=== PATIENT | female | born 2000 | race Caucasian/White ===

== ENCOUNTER 2018-05-27 19:44 | Emergency (ER) | payer OTHER ==
[2018-05-27 21:17] LABS: ABS Basophils 0 10^3/ul (0-0.2); ABS Eosinophils 0.1 10^3/ul (0-0.6); ABS Lymphocytes 3.3 10^3/ul (1.0-4.8); ABS Monocytes 0.4 10^3/ul (0-0.8); ABS Neutrophils 3.6 10^3/ul (1.5-7.7); ABS Nucleated RBC 0 10^3/ul; Eosinophil % 0.8 %; Hematocrit 42 % (33-41); Hemoglobin 13.8 g/dL (12.0-16.0); Lymphocyte % 44.5 %; Mean Corpuscular HGB Conc 33 g/dL (31-36); Mean Corpuscular Hemoglobin 27 pg (27-31); Mean Corpuscular Volume 82 fL (80-97); Mean Platelet Volume 7.2 fL (7.4-10.4); Nucleated Red Blood Cells % 0.1; Platelet Count 315 10^3/uL (150-450); Red Blood Count 5.07 10^6 /uL (3.70-4.87); Red Cell Distribution Width 15 % (10.5-15); White Blood Count 7.5 10^3/uL (3.5-10.8)
[2018-05-27 21:34] LABS: ALT 17 U/L (7-52); AST 20 U/L (13-39); Albumin 4.1 g/dL (3.2-5.2); Albumin/Globulin Ratio 1.2 (1-3); Alkaline Phosphatase 34 U/L (34-104); Anion Gap 7 mmol/L (2-11); BUN/Creatinine Ratio 13.9 (8-20); Blood Urea Nitrogen 11 mg/dL (6-24); C Reactive Protein 3.03 mg/L (<8.01); CO2 Carbon Dioxide 25 mmol/L (22-32); Calcium 9.4 mg/dL (8.6-10.3); Chloride 105 mmol/L (101-111); EGFR African American 113.4 (>60); EGFR Non-African American 93.8 (>60); Globulin 3.3 g/dL (2-4); Glucose 82 mg/dL (70-100); Potassium 3.5 mmol/L (3.5-5.0); Sodium 137 mmol/L (135-145); Total Protein 7.4 g/dL (6.4-8.9)
[2018-05-27 21:40] LABS: HCG Pregnancy < 0.60 mIU/mL
[2018-05-27] MEDS ORDERED: Al Hydrox/Mg Hydrox/Simet LIQ* 30 ML UDC PO ONE (22:16)
[2018-05-27] MEDS ORDERED: Lidocaine 2% VISCOUS* 15 ML UDC PO ONE (22:16)
--- NOTE | 2018-05-27 22:18 | ED ---
GI/ HPI - HPI Summary HPI Summary: 17-year-old female presents with left-sided abdominal pain for the past day. She states she has history of IBS feels similar. States she had a bowel movement this morning that was diarrhea. She admits some nausea. No vomiting. States that she pain started after she was exercising. She did have some pain yesterday too. She states that it feels similar to when she had cysts in the past. She has not needed to take her IBS medication many months. Denies any previous abd surgeries. - History of Current Complaint Chief Complaint: EDAbdPain Time Seen by Provider: 05/27/18 22:16 Stated Complaint: ABD PAIN PER PT Pain Intensity: 5 - Allergy/Home Medications Allergies/Adverse Reactions: Allergies Allergy/AdvReac Type Severity Reaction Status Date / Time No Known Allergies Allergy Verified 05/27/18 19:53 PMH/Surg Hx/FS Hx/Imm Hx Endocrine/Hematology History: Denies: Hx Anticoagulant Therapy Respiratory History: Denies: Hx Asthma GI History: Reports: Hx Irritable Bowel Infectious Disease History: No Infectious Disease History: Reports: Traveled Outside the [place] in Last 30 Days - Charline, Giuseppe - Family History Known Family History: Positive: Non-Contributory - Social History Substance Use Type: Reports: None Smoking Status (MU): Never Smoked Tobacco Review of Systems Negative: Fever Negative: Chest Pain Negative: Shortness Of Breath Positive: Abdominal Pain, Diarrhea, Nausea. Negative: Vomiting Negative: dysuria All Other Systems Reviewed And Are Negative: Yes Physical Exam Triage Information Reviewed: Yes Vital Signs On Initial Exam: Initial Vitals Temp Pulse Resp BP Pulse Ox 97.9 F 71 20 143/94 99 05/27/18 19:51 05/27/18 19:51 05/27/18 19:51 05/27/18 19:51 05/27/18 19:51 Vital Signs Reviewed: Yes Appearance: Positive: Well-Appearing Skin: Positive: Warm, Dry Head/Face: Positive: Normal Head/Face Inspection Eyes: Positive: Normal, Conjunctiva Clear ENT: Positive: Pharynx normal Respiratory/Lung Sounds: Positive: Clear to Auscultation, Breath Sounds Present Cardiovascular: Positive: Normal, RRR Abdomen Description: Positive: Soft, Other: - tenderness left side abd Bowel Sounds: Positive: Present Musculoskeletal: Positive: Normal Neurological: Positive: Normal Psychiatric: Positive: Normal Diagnostics - Vital Signs Vital Signs Temp Pulse Resp BP Pulse Ox 05/27/18 19:51 97.9 F 71 20 143/94 99 - Laboratory Lab Results: Lab Results 05/27/18 05/27/18 Range/Units 21:09 21:09 WBC 7.5 (3.5-10.8) 10^3/uL RBC 5.07 H (3.70-4.87) 10^6 /uL Hgb 13.8 (12.0-16.0) g/dL Hct 42 H (33-41) % MCV 82 (80-97) fL MCH 27 (27-31) pg MCHC 33 (31-36) g/dL RDW 15 (10.5-15) % Plt Count 315 (150-450) 10^3/uL MPV 7.2 L (7.4-10.4) fL Neut % (Auto) 48.5 % Lymph % (Auto) 44.5 % Robeson % (Auto) 5.8 % Eos % (Auto) 0.8 % Baso % (Auto) 0.4 % Absolute Neuts (auto) 3.6 (1.5-7.7) 10^3/ul Absolute Lymphs (auto) 3.3 (1.0-4.8) 10^3/ul Absolute Monos (auto) 0.4 (0-0.8) 10^3/ul Absolute Eos (auto) 0.1 (0-0.6) 10^3/ul Absolute Basos (auto) 0 (0-0.2) 10^3/ul Absolute Nucleated RBC 0 10^3/ul Nucleated RBC % 0.1 Sodium 137 (135-145) mmol/L Potassium 3.5 (3.5-5.0) mmol/L Chloride 105 (101-111) mmol/L Carbon Dioxide 25 (22-32) mmol/L Anion Gap 7 (2-11) mmol/L BUN 11 (6-24) mg/dL Creatinine 0.79 (0.51-0.95) mg/dL Est GFR ( Amer) 113.4 (>60) Est GFR (Non-Af Amer) 93.8 (>60) BUN/Creatinine Ratio 13.9 (8-20) Glucose 82 (70-100) mg/dL Calcium 9.4 (8.6-10.3) mg/dL Total Bilirubin 0.80 (0.2-1.0) mg/dL AST 20 (13-39) U/L ALT 17 (7-52) U/L Alkaline Phosphatase 34 (34-104) U/L C-Reactive Protein 3.03 (<8.01) mg/L Total Protein 7.4 (6.4-8.9) g/dL Albumin 4.1 (3.2-5.2) g/dL Globulin 3.3 (2-4) g/dL Albumin/Globulin Ratio 1.2 (1-3) Lipase 26 (11.0-82.0) U/L Beta HCG, Quant < 0.60 mIU/mL Result Diagrams: 05/27/18 21:09 05/27/18 21:09 Lab Statement: Any lab studies that have been ordered have been reviewed, and results considered in the medical decision making process. GIGU Course/Dx - Course Course Of Treatment: 17-year-old female presents with left-sided abdominal pain for the past day. She states she has history of IBS feels similar. States she had a bowel movement this morning that was diarrhea. She admits some nausea. No vomiting. States that she pain started after she was exercising. She did have some pain yesterday too. She states that it feels similar to when she had cysts in the past. She has not needed to take her IBS medication many months. Denies any previous abd surgeries. On exam has some tenderness over left side of abdomen. wbc normal. CRP is normal. ultrasound is normal. Discussed patient will restart IBS medication. Told to followed up with GI no improvement. could be IBS vs gastritis vs gastroenteritis causing symptoms. warned to return to ER for worsening symptoms. Patient understands agrees with plan. - Diagnoses Differential Diagnoses - Female: Gastritis, Gastroenteritis (Viral), Irritable Bowel Syndrome Provider Diagnoses: Abdominal pain Discharge - Sign-Out/Discharge Documenting (check all that apply): Patient Departure Patient Received Moderate/Deep Sedation with Procedure: No - Discharge Plan Condition: Good Disposition: HOME Patient Education Materials: Abdominal Pain (ED) Referrals: Non Staff,Doctor [Primary Care Provider] - Additional Instructions: restart medications for IBS can add on pepcid or omeprazole in addition eat bland foods Take ibuprofen or Tylenol for pain as needed every 6 hours Follow up with GI if no improvement Return to ED if develop fever, severe abdominal pain, or any new or worsening symptoms - Billing Disposition and Condition Condition: GOOD Disposition: Home
[2018-05-27 22:47] VITALS: BP 126/91
== END 2018-05-27 22:46 | disposition home or self-care (01) ==
LOC: ED 19:44
DX: R10.9 Unspecified abdominal pain (principal)
CPT/HCPCS: 36415; 76830; 80053; 83690; 84702; 85025; 86140; 99282; A9270-GY